=== PATIENT | male | born 1995 | race Caucasian/White ===

== ENCOUNTER 2017-05-24 18:20 | Inpatient (IN) | payer OTHER, SELFPAY ==
[2017-05-24] MEDS ORDERED: Adacel (T-DAP) 0.5 ML VIAL ONE (18:34)
[2017-05-24 18:46] LABS: #Basophils 0.1 thou/uL (0.0-0.2); #Eosinphils 0.2 thou/uL (0.0-0.7); #Lymphocytes 2.6 thou/uL (1.20-3.40); #Monocytes 0.6 thou/uL (0.11-0.59); #Neutrophils 4.6 thou/uL (1.40-6.50); %Basophils 0.8 % (0.0-1.0); %Lymphocytes 31.7 % (28.0-48.0); %Monocytes 7.6 % (0.0-4.0); Mean Platelet Volume 8.3 fL (7.4-10.4); Red Blood Cell (RBC) Count 4.88 mill/uL (4.00-5.20)
[2017-05-24 18:52] LABS: PTT 27.7 SEC (22.9-36.1); Prothrombin Time 13.7 SEC (12.0-14.7)
[2017-05-24 19:08] LABS: Lactic Acid - Sepsis 2.9 mmol/L (0.5-2.2)
[2017-05-24 19:12] LABS: ALT (SGPT) 18 U/L (8-55); AST (SGOT) 22 U/L (10-45); Alkaline Phosphatase 64 U/L (Less than 750); Anion Gap 14 mmol/L (10-20); BUN (Urea Nitrogen) 8 mg/dL (8.4-21.0); Bilirubin, Total 0.5 mg/dL (0.2-1.2); Calc. Creatinine Clearance 0 mL/min (70-130); Calcium 9.4 mg/dL (7.8-10.44); Carbon Dioxide 23 mmol/L (22-29); Chloride 107 mmol/L (98-107); Estimated GFR-MDRD Greater than 90; Protein, Total 7.4 g/dL (6.0-8.3)
[2017-05-24] MEDS ORDERED: Gentamicin 80 MG/2 ML VIAL ONE (19:32)
[2017-05-24] MEDS ORDERED: Gentamicin Sulfate 80 MG in Premix Bag 1 BAG IVPB SCH (19:45)
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
[2017-05-24] MEDS ORDERED: Bacitracin Zinc Ointment 30 gm TUBE ONE (21:42)
[2017-05-24] MEDS ORDERED: Sodium Chloride 0.9% 40 ML ONE (21:42)
[2017-05-24] MEDS ORDERED: Midazolam HCl 2 mg/2 ml Vial ONE (21:58)
[2017-05-24] MEDS ORDERED: Fentanyl 100 MCG/2 ML VIAL ONE ×2 (21:58→23:28)
[2017-05-24] MEDS ORDERED: Lidocaine 2% PF 10 ML AMP (For Epidural Use) ONE (22:15)
[2017-05-24] MEDS ORDERED: Succinylcholine Chloride 20 MG/ML 10 ml SYRINGE FS ONE (22:15)
[2017-05-24] MEDS ORDERED: Ondansetron HCl/PF 4 MG/2 ML Vial ONE (22:15)
[2017-05-24] MEDS ORDERED: Propofol 200 MG/20 ML VIAL ONE (22:15)
[2017-05-24] MEDS ORDERED: Meperidine HCl/PF 25 MG/ML VIAL SLOW IVP PRN (22:50)
[2017-05-24] MEDS ORDERED: Promethazine HCl 25 MG/ML VIAL IM PRN (22:50)
[2017-05-24] MEDS ORDERED: Promethazine HCl 25 MG/ML VIAL SLOW IVP PRN (22:50)
[2017-05-24] MEDS ORDERED: Ondansetron HCl/PF 4 MG/2 ML Vial IVP PRN (22:50)
[2017-05-24] MEDS ORDERED: Meperidine HCl/PF 25 MG/ML VIAL ONE (23:06)
[2017-05-24] MEDS ORDERED: Meperidine HCl/PF 25 MG/ML VIAL IM PRN (23:31)
[2017-05-24] MEDS ORDERED: hydrOXYzine 25 MG/ML VIAL IM PRN (23:32)
[2017-05-24] MEDS ORDERED: HYDROcodone/Acetaminophen 7.5/325 mg Tablet PO PRN (23:33)
[2017-05-24] MEDS ORDERED: Ketorolac Tromethamine 30 MG/ML VIAL ONE (23:43)
[2017-05-25] MEDS ORDERED: Fentanyl 100 MCG/2 ML VIAL ONE (00:03)
[2017-05-25] MEDS ORDERED: Sodium Chloride 0.9% 1,000 ML IV SCH (00:23)
[2017-05-25] MEDS ORDERED: Promethazine HCl 25 MG/ML VIAL IM PRN (00:23)
[2017-05-25] MEDS ORDERED: Dextrose 5% in Water 1,000 ML IV PRN (00:23)
[2017-05-25] MEDS ORDERED: Ondansetron ODT 4 MG TAB PO PRN (00:23)
[2017-05-25] MEDS ORDERED: Ketorolac Tromethamine 30 MG/ML VIAL IVP SCH (00:23)
[2017-05-25] MEDS ORDERED: traMADol HCl 50 MG TAB PO PRN ×3 (00:23→10:57)
[2017-05-25] MEDS ORDERED: Dextrose 50% Abboject 50 ML SYRINGE SLOW IVP PRN (00:23)
[2017-05-25] MEDS ORDERED: Famotidine 20 MG TAB PO SCH (00:45)
[2017-05-25] MEDS: Ketorolac Tromethamine 30 MG/ML VIAL IVP SCH ×2 (00:48→05:22)
[2017-05-25] MEDS: Morphine Sulfate 2 MG/ML SYRINGE SLOW IVP PRN (01:00)
[2017-05-25 01:11] VITALS: BMI 26.6
[2017-05-25] MEDS: Gentamicin Sulfate 80 MG in Premix Bag 1 BAG IVPB SCH ×3 (03:20→20:35)
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
[2017-05-25 06:11] LABS: #Basophils 0.1 thou/uL (0.0-0.2); #Eosinphils 0.3 thou/uL (0.0-0.7); #Monocytes 0.7 thou/uL (0.11-0.59); #Neutrophils 6.4 thou/uL (1.40-6.50); %Basophils 0.5 % (0.0-1.0); %Eosinophils 2.5 % (0.0-10.0); %Lymphocytes 28.9 % (28.0-48.0); %Monocytes 6.4 % (0.0-4.0); Hematocrit 41.2 % (42.0-52.0); Mean Platelet Volume 8.5 fL (7.4-10.4); Red Blood Cell (RBC) Count 4.39 mill/uL (4.00-5.20); White Blood Cell (WBC) Count 10.4 thou/uL (4.8-10.8)
[2017-05-25] MEDS: Famotidine 20 MG TAB PO SCH ×2 (09:11→20:00)
--- NOTE | 2017-05-25 09:34 | RAD ---
RADIOGRAPHS TWO VIEWS: 05/24/2017 PROVIDED CLINICAL HISTORY: Right fourth and fifth distal phalangeal fractures. FINDINGS: Frontal and lateral spot fluoroscopic views of the fourth and fifth digits submitted. Soft tissue injury involving the distal aspects of the fourth and fifth digits is re-demonstrated. The osseous fragments within the remaining soft tissues of the distal fourth and fifth digits, seen on the prior examination, are no longer apparent. Additional interval change from the prior study i s not evident. IMPRESSION: As above. POS: OFF
[2017-05-25] MEDS: Acetaminophen 500 MG TAB PO SCH ×3 (11:35→23:56)
[2017-05-25] MEDS: Ibuprofen 800 MG TAB PO SCH ×3 (11:35→23:57)
[2017-05-25] MEDS: traMADol HCl 50 MG TAB PO SCH ×3 (11:35→23:57)
[2017-05-25] MEDS: Ondansetron HCl/PF 4 MG/2 ML Vial IVP PRN (11:46)
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
[2017-05-25 22:21] LABS: #Basophils 0.1 thou/uL (0.0-0.2); #Eosinphils 0.3 thou/uL (0.0-0.7); #Lymphocytes 2.2 thou/uL (1.20-3.40); #Monocytes 0.7 thou/uL (0.11-0.59); #Neutrophils 6.1 thou/uL (1.40-6.50); %Basophils 0.6 % (0.0-1.0); %Eosinophils 3.2 % (0.0-10.0); %Lymphocytes 23.5 % (28.0-48.0); Hematocrit 42.8 % (42.0-52.0); Red Blood Cell (RBC) Count 4.56 mill/uL (4.00-5.20); White Blood Cell (WBC) Count 9.3 thou/uL (4.8-10.8)
[2017-05-26] MEDS: Ondansetron HCl/PF 4 MG/2 ML Vial IVP PRN (06:25)
[2017-05-26] MEDS: Acetaminophen 500 MG TAB PO SCH ×3 (06:25→18:29)
[2017-05-26] MEDS: Ibuprofen 800 MG TAB PO SCH ×3 (06:25→18:29)
[2017-05-26] MEDS: traMADol HCl 50 MG TAB PO SCH ×3 (06:29→18:30)
--- NOTE | 2017-05-26 06:50 | PRG ---
DATE OF SERVICE: 05/25/2017 The patient is postoperative day #1, reports some numbness in the small finger. Today, I discussed his wound with him and a final plan. His dressings are intact with minimal swelling. I informed th e patient he will have his dressing changed tomorrow and at that point we will determine if he has s urgery tomorrow evening or 24 hours later on Thursday the . White blood cell count today shows elevation of 10.4 repeat, and if he does have this and he will have another debridement without janki sure within 24 hours of that finding.
[2017-05-26] MEDS: Famotidine 20 MG TAB PO SCH (09:41)
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
[2017-05-26] MEDS ORDERED: Hetastarch 6% 500 ML 0 ML ONE (19:43)
[2017-05-26] MEDS ORDERED: Bacitracin Zinc Ointment 30 gm TUBE ONE (19:43)
[2017-05-26] MEDS ORDERED: Heparin 0 ML ONE (19:43)
[2017-05-26] MEDS ORDERED: Betamet Acet/Betamet Na Ph 30 MG/5 ML VIAL ONE (19:43)
[2017-05-26] MEDS ORDERED: Heparin 10,000 UNITS/1 ML VIAL ONE (19:46)
[2017-05-26] MEDS ORDERED: Bupivacaine PF 0.5% 30 ML VIAL ONE (19:46)
[2017-05-26] MEDS ORDERED: Sodium Chloride 0.9% 20 ML ONE (19:47)
[2017-05-26] MEDS ORDERED: Midazolam HCl 2 mg/2 ml Vial ONE (21:54)
[2017-05-26] MEDS ORDERED: Fentanyl 100 MCG/2 ML VIAL ONE ×2 (21:54→23:37)
[2017-05-26] MEDS ORDERED: Propofol 200 MG/20 ML VIAL ONE (21:56)
[2017-05-26] MEDS ORDERED: Succinylcholine Chloride 20 MG/ML 10 ml SYRINGE FS ONE (21:56)
[2017-05-26] MEDS ORDERED: Lidocaine 2% PF 10 ML AMP (For Epidural Use) ONE (21:56)
[2017-05-26] MEDS ORDERED: ePHEDrine/0.9% NaCl/PF SYRINGE 50 mg/10 ml ONE (21:56)
[2017-05-27] MEDS ORDERED: Ketorolac Tromethamine 30 MG/ML VIAL ONE ×2 (00:01)
[2017-05-27] MEDS ORDERED: Fentanyl 100 MCG/2 ML VIAL ONE ×2 (00:04→00:28)
[2017-05-27] MEDS: traMADol HCl 50 MG TAB PO SCH ×2 (01:07→05:52)
[2017-05-27] MEDS: Acetaminophen 500 MG TAB PO SCH ×3 (01:07→11:11)
[2017-05-27] MEDS: Famotidine 20 MG TAB PO SCH ×2 (02:24→08:43)
[2017-05-27] MEDS: Ibuprofen 800 MG TAB PO SCH (02:25)
[2017-05-27] MEDS ORDERED: Meperidine HCl/PF 25 MG/ML VIAL IM PRN (02:38)
[2017-05-27] MEDS ORDERED: hydrOXYzine 25 MG/ML VIAL IM PRN (02:39)
[2017-05-27] MEDS: Ondansetron HCl/PF 4 MG/2 ML Vial IVP PRN (02:40)
[2017-05-27] MEDS: Morphine Sulfate 2 MG/ML SYRINGE SLOW IVP PRN (02:40)
[2017-05-27] MEDS ORDERED: HYDROcodone/Acetaminophen 7.5/325 mg Tablet PO PRN (02:41)
[2017-05-27] MEDS ORDERED: Dextrose 5 % And 0.9 % NaCl 1,000 ML IV SCH (02:45)
[2017-05-27] MEDS: Vancomycin HCl 750 MG in Sodium Chloride 0.9% 250 ML 250 ML IVPB SCH ×2 (03:32→11:10)
[2017-05-27] MEDS ORDERED: Ketorolac Tromethamine 30 MG/ML VIAL IVP SCH (08:00)
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
[2017-05-27 16:22] VITALS: BP 126/73; TEMP 98.3
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
--- NOTE | 2017-06-05 14:47 | EKG ---
Test Reason : Blood Pressure : / mmHG Vent. Rate : 086 BPM Atrial Rate : 086 BPM P-R Int : 136 ms QRS Dur : 084 ms QT Int : 362 ms P-R-T Axes : 048 068 028 degrees QTc Int : 433 ms Normal sinus rhythm with sinus arrhythmia Septal infarct , age undetermined Abnormal ECG Confirmed by ANDREW JOYA D.O. ([id number]), editorial assistant JASON DRUMMOND ([id number]) on 06/05/2017 2:47:28 PM Referred By: Confirmed By:ANDREW JOYA D.O.
== END 2017-05-27 18:00 | disposition home or self-care (01) | DRG 578 ==
LOC: ERS 18:20 → OBSVTOIN 22:59 → INTOOBSV 22:59 → SURG B 22:59
PROVIDERS: ADMIT Surgery; ATTEND Surgery
PROC: 0HDQXZZ Extraction of Finger Nail, External Approach (ICD-10-PCS; 2017-05-24)
PROC: 0JDJ0ZZ Extraction of Right Hand Subcutaneous Tissue and Fascia, Open Approach (ICD-10-PCS; 2017-05-24)
PROC: 0HDQXZZ Extraction of Finger Nail, External Approach (ICD-10-PCS; principal; 2017-05-25)
PROC: 01N40ZZ Release Ulnar Nerve, Open Approach (ICD-10-PCS; principal; 2017-05-25)
PROC: 0HQFXZZ Repair Right Hand Skin, External Approach (ICD-10-PCS; principal; 2017-05-25)
PROC: 0HBBXZZ Excision of Right Upper Arm Skin, External Approach (ICD-10-PCS; principal; 2017-05-25)
PROC: 0HRFX73 Replacement of Right Hand Skin with Autologous Tissue Substitute, Full Thickness, External Approach (ICD-10-PCS; principal; 2017-05-25)
PROC: 0JQJ0ZZ Repair Right Hand Subcutaneous Tissue and Fascia, Open Approach (ICD-10-PCS; principal; 2017-05-25)
DX: S61.401A Unspecified open wound of right hand, initial encounter (principal); S68.126A Partial traumatic metacarpophalangeal amputation of right little finger, initial encounter; S68.124A Partial traumatic metacarpophalangeal amputation of right ring finger, initial encounter; X93.XXXA Assault by handgun discharge, initial encounter
CPT/HCPCS: 36415; 76000; 80053; 80307; 83605; 85025; 85610; 85730; 86850; 86900; 86901; 90471; 90715; 93005; 96365; 96375; 96376; A4216; J0690; J0702; J1580; J1644; J1885; J2001; J2175; J2250; J2270; J2405; J2550; J2704; J3010; J3370; J3490; J7050; Q0162; S0020